=== PATIENT | female | born 2000 | race Caucasian/White ===

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

== ENCOUNTER 2021-07-10 19:55 | Emergency (ER) | payer MEDICARE, OTHER ==
[~2021-07-10] VITALS: Ht 162.6 cm; Wt 61.5 kg
[~2021-07-10 19:55] MED LIST: FLUT12AE IH
[2021-07-10 20:07] VITALS: BP 126/76
[2021-07-10] MEDS ORDERED: AMOX500C PO (20:43)
--- NOTE | 2021-07-10 20:43 | PHYS DOC ---
Past History Past Medical History: Asthma Additional Past Medical Histor: eczema (RHIANNON GODINEZ APRN) Past Surgical History: No Surgical History (RHIANNON GODINEZ APRN) Smoking: Non-smoker Alcohol Use: None Drug Use: None (RHIANNON GODINEZ APRN) General Adult EDM: Chief Complaint: SYNCOPE HPI: HPI: Patient is a 19-year-old female presents with sore throat, fever. Patient states "I feel like I was going to pass out and that my throat was tight". Mom states when she got home patient was laying on the floor in the living room. Patient is able to swallow her own secretions. Denies take anything at home for symptoms. Patient's temperature on arrival was 100.4. Denies nausea/vomiting/diarrhea. Mom states "she gets strep throat multiple times a year". No medical history. Patient is up-to-date on immunizations. (RHIANNON GODINEZ APRN) Review of Systems: Review of Systems: ROS At least 10 ROS systems have been reviewed and are negative except as documented in the HPI. General: Negative except as outlined in HPI above. Skin: Negative except as outlined in HPI above. HEENT: Negative except as outlined in HPI above. Neck: Negative except as outlined in HPI above. Respiratory: Negative except as outlined in HPI above.. Cardiovascular: Negative except as outlined in HPI above. Abdomen: Negative except as outlined in HPI above. : Negative except as outlined in HPI above. Back/MSK: Negative except as outlined in HPI above. Neuro: Negative except as outlined in HPI above. Psych: Negative except as outlined in HPI above. (RHIANNON GODINEZ APRN) Allergies: Allergies: Allergies Coded Allergies Type Severity Reaction Last Updated Verified No Known Drug Allergies 07/10/21 No (RHIANNON GODINEZ APRN) Physical Exam: PE: Constitutional: Well developed, well nourished, no acute distress, non-toxic appearance. [] HENT: bilateral external ears normal, oropharynx red, oral exudates. Eyes: PERRLA, conjunctiva normal, no discharge. [] Neck: Normal range of motion, no tenderness, supple, no stridor. [] Cardiovascular:Heart rate regular rhythm, no murmur [] Lungs & Thorax: Bilateral breath sounds clear to auscultation [] Abdomen: Bowel sounds normal, soft, no tenderness Skin: Warm, dry, no erythema, no rash. [] Back: No tenderness, no CVA tenderness. [] Extremities: No tenderness, no cyanosis, no clubbing, ROM intact, no edema. [] Neurologic: Alert and oriented X 3, normal motor function, normal sensory function, no focal deficits noted. [] Psychologic: Affect normal, judgement normal, mood normal. [] (RHIANNON GODINEZ APRN) Current Patient Data: Vital Signs: Vital Signs Date Time Temp Pulse Resp B/P (MAP) Pulse Ox O2 Delivery O2 Flow Rate FiO2 07/10/21 20:07 100.4 110 20 126/76 (93) 99 Room Air (RHIANNON GODINEZ APRN) EKG: EKG: [] (RHIANNON GODINEZ APRN) Radiology/Procedures: Radiology/Procedures: [] (RHIANNON GODINEZ APRN) Heart Score: C/O Chest Pain: No Risk Factors: Risk Factors: DM, Current or recent (<one month) smoker, HTN, HLP, family history of CAD, obesity. Risk Scores: Score 0 - 3: 2.5% MACE over next 6 weeks - Discharge Home Score 4 - 6: 20.3% MACE over next 6 weeks - Admit for Clinical Observation Score 7 - 10: 72.7% MACE over next 6 weeks - Early Invasive Strategies (RHIANNON GODINEZ APRN) Course & Med Decision Making: Course & Med Decision Making Pertinent Labs and Imaging studies reviewed. (See chart for details) [] 20-year-old female presents with sore throat and fever. Physical exam shows oral exudates and redness. Patient is able to swallow her own secretions. Patient is febrile. Patient given Motrin. First dose of amoxicillin given. Patient sent home with prescription for amoxicillin to treat strep. Advised patient to drink plenty of fluids. Ibuprofen and Tylenol. Discussed return precautions. (RHIANNON GODINEZ APRN) Course & Med Decision Making Did not see or evaluate patient. Did not discuss patient with RESEARCH SUBJECT. Generally agree with RESEARCH SUBJECT's work-up and disposition per note (FARZAD SRINIVASAN MD) Dragon Disclaimer: Dragon Disclaimer: This electronic medical record was generated, in whole or in part, using a voice recognition dictation system. (RHIANNON GODINEZ APRN) Departure Departure: Impression: Primary Impression: Acute pharyngitis Qualified Codes: J02.9 - Acute pharyngitis, unspecified Disposition: HOME / SELF CARE / HOMELESS Condition: STABLE Referrals: PCP,UNKNOWN (PCP) Patient Instructions: Strep Throat, [id number] Additional Instructions: You are seen the emergency room for sore throat. Sending you home on a prescription for amoxicillin. You also were given steroids while in the ER. Take Motrin and Tylenol at home for pain and fever. Return to emergency room with worsening symptoms or concerns. EMERGENCY DEPARTMENT GENERAL DISCHARGE INSTRUCTIONS Thank you for coming to [facility] (ED) today and trusting us with you care. We trust that you had a positivie experience in our Emergency Department. If you wish to speak to the department management, you may call the director at [phone]. YOUR FOLLOW UP INSTRUCTIONS ARE FOLLOWS: 1. Do you have a private Doctor? If you do not have a private doctor, please ask for a resource list of physicians or clinics that may be able to assist you with follow up care. 2. The Emergency Physician has interpreted your x-rays. The X-Ray specialist will also review them. If there is a change in the findings, you will be notified in 48 hours when at all possible. 3. A lab test or culture has been done, your results will be reviewed and you will be notified if you need a change in treatment. ADDITIONAL INSTRUCTIONS AND INFORMATION: 1. Your care today has been supervised by a physician who is specially trained in emergency care. Many problems require more than one evaluation for a complete diagnosis and treatment. We recommend that you schedule your follow up appointment as recommended to ensure complete treatment of you illness or injury. If you are unable to obtain follow up care and continue to have a problem, or if your condition worsens, we recommend that you return to the ED. 2. We are not able to safely determine your condition over the phone nor are we able to give sound medical advice over the phone. For these safety reasons, if you call for medical advice we will ask you to come to the ED for further evaluation. 3. If you have any questions regarding these discharge instructions please call the ED at [phone]. SAFETY INFORMATION: In the interest of safety, wellness, and injury prevention; we encourage you to wear your sealbelt, if you smoke; quite smoking, and we encourage family to use a protective helmet for bicycling and other sporting events that present an increased risk for head injury. IF YOUR SYMPTOMS WORSEN OR NEW SYMPTOMS DEVELOP, OR YOU HAVE CONCERNS ABOUT YOUR CONDITION; OR IF YOUR CONDITION WORSENS WHILE YOU ARE WAITING FOR YOUR FOLLOW UP APPOINTMENT; EITHER CONTACT YOUR PRIMARY CARE DOCTOR, THE PHYSICIAN WHOSE NAME AND NUMBER YOU WERE GIVEN, OR RETURN TO THE ED IMMEDIATELY. Scripts Amoxicillin (AMOXICILLIN) 500 Mg Capsule 1 CAP PO BID for infection for 10 Days, #20 CAP Prov: RHIANNON GODINEZ APRN 07/10/21 RHIANNON GODINEZ APRN Jul 10, 2021 20:43 FARZAD SRINIVASAN MD Jul 10, 2021 22:40
[2021-07-10] MEDS ORDERED: AMOXICILLIN 250 MG CAPSULE PO ONE (20:45)
[2021-07-10] MEDS ORDERED: DEXAMETHASONE 4 MG TABLET PO ONE (20:45)
--- NOTE | 2021-07-10 20:57 | EKG ---
[address] [address] Test Date: 2021-07-10 Test Time: 20:50:22 Pat Name: SWAPNA DOMINGUEZ Department: Room: Gender: F [employer]: : 2000 Requested By: RHIANNON GODINEZ Order Number: [id number] Reading MD: Measurements Intervals [place] Rate: 94 P: 48 FL: 132 QRS: 84 QRSD: 76 T: 23 QT: 310 QTc: 392 Interpretive Statements SINUS RHYTHM NORMAL ECG RI6.02 No previous ECG available for comparison
[2021-07-10] MEDS ORDERED: IBUPROFEN 600 MG TABLET. PO ONE (21:00)
== END 2021-07-10 21:07 | disposition home or self-care (01) ==
LOC: ER 19:55
DX: J02.9 Acute pharyngitis, unspecified (principal); J45.909 Unspecified asthma, uncomplicated
CPT/HCPCS: 93005; 99284; J8540